=== PATIENT | female | born 1950 | race Caucasian/White ===

== ENCOUNTER → 2016-09-27 | Day surgery (SDC) | payer MEDICARE, BC ==
[~2016-09-27] MED LIST: ALPR-138 PO; AMBI5TAB PO; BUPIVACAINE/EPINEPHRINE 0.5% 50 ML VIAL ONE; LACTATED RINGER'S 1000 ML INJ 1,000 ML ONE; MIDAZOLAM HCL 2 MG/2 ML VIAL ONE; ONDANSETRON HCL 4 MG/2 ML VIAL IV PUSH ONE; PRIL20TA2 PO; PROPOFOL 200 MG/20 ML AMP IV ONE; ceFAZolin 2 GM PREMIX 50 ML ONE
--- NOTE | 2016-09-27 11:04 | TN ---
cc: SILVIA MENDOZA M.D. DATE OF SURGERY: 09/27/2016 PREOPERATIVE DIAGNOSIS Microcalcifications right breast with atypia. POSTOPERATIVE DIAGNOSIS Microcalcifications right breast with atypia. PROCEDURE PERFORMED Needle-localized right breast lumpectomy. SURGEON Silvia Mendoza. ANESTHESIA General LMA with local. COMPLICATIONS None. INDICATION FOR PROCEDURE Ms. Toledo is a very pleasant 66-year-old female who was noted to have some concerning microcalcifications in her right breast on her most recent mammogram. She underwent stereotactic biopsy and this revealed epithelial cells with atypia. She was referred for surgical evaluation. The risks and benefits of observation versus lumpectomy for confirmation of diagnosis was discussed with her and she elected to have lumpectomy. The risks and benefits were reviewed with her in detail and she was agreeable. DETAILS OF PROCEDURE The patient was identified, brought to the operating room and placed supine on the operating table. After adequate general anesthesia was achieved with LMA, the right breast was prepped and draped in standard surgical fashion. The patient had a wire localization at approximately the 9 o'clock position in the right breast. The patient had a previous wound on her right breast from her injection site where she had some skin necrosis. We discussed excising this as part of the surgical procedure. I therefore did an elliptical incision to include the ischemic site as part of the surgical incision. This was just above the wire localization. 0.25% Marcaine was injected in the skin and subcutaneous tissue and in the breast. An elliptical skin incision was used to include the previous necrotic wound. This was excised and sent for pathology. Next, the breast tissue was grasped with an Allis clamp and using electrocautery Bovie all breast tissue was excised with generous margins down to the base of the wire. The wire was then clipped and the surgical specimen brought out. A short stitch was placed superior, a long stitch was placed lateral. Specimen was sent to radiology where Dr. Tate called back stating the microcalcifications and clip were present within the specimen. The specimen was sent to pathology for analysis. The wound was copiously irrigated with normal saline solution. Bleeding points were controlled with electrocautery Bovie. The wound was then infiltrated with 10 cc of 0.25% Marcaine. The wound was closed in two layers using 3-0 Vicryl and 4-0 Monocryl. Sterile dressings were applied and the patient was awakened and brought to Recovery in stable condition. Silvia MD KARMEN Mendoza /10:48 AM /10:59 AM KARLY
== END | disposition home or self-care (01) ==
LOC: ESDC 07:19
PROVIDERS: ATTEND Surgery Trauma Surgery
DX: R92.0 Mammographic microcalcification found on diagnostic imaging of breast (principal)
CPT/HCPCS: 00400; 19125; 88307; J0690; J2250; J2405; J3010; J7120